=== PATIENT | female | born 2005 | race Caucasian/White ===

== ENCOUNTER 2024-03-10 03:06 | Emergency (ER) | payer MEDICAID ==
[2024-03-10 03:21] VITALS: RESP 16; TEMP 97.4
[2024-03-10 03:28] LABS: HCG URINE TEST NEGATIVE (NEGATIVE)
[2024-03-10 03:32] LABS: Appearance Clear (Clear); Bacteria None Seen /HPF (None Seen); Bilirubin Negative (Negative); Blood Negative (Negative); Epithelial Cells Rare /HPF (None Seen); Glucose, Urine Negative (Negative); Hyaline Casts NONE SEEN /LPF (0-2); Ketones Negative (Negative); Leukocyte Esterase Negative (Negative); Nitrite Negative (Negative); Ph 5.5 (4.6-8.0); Protein,Urine Dip Trace (Negative); RBC 0-2 /HPF (0-5); Specific Gravity >=1.030 (1.005-1.030); Urobilinogen 0.2 mg/dL (0.2); WBC 0-2 /HPF (0-5)
[2024-03-10] MEDS ORDERED: Zofran 4 MG/2 ML VIAL ONE (03:50)
[2024-03-10] MEDS ORDERED: MORPHINE SULFATE 2 MG INJ ONE (03:51)
[2024-03-10] MEDS ORDERED: Sodium Chloride 0.9% 1000 ML 1,000 ML ONE (03:51)
[2024-03-10] MEDS: Sodium Chloride 0.9% 1000 ML 1,000 ML IV SCH (03:55)
[2024-03-10 04:00] LABS: Absolute Neutrophil Ct (ANC) 11.78 x10^3/uL (1.56-6.13); BASOPHIL % 0.3 % (0.1-1.2); Basophil (Absolute #) 0.04 x10^3/uL (0.01-0.08); Eosinophil % 0.9 % (0.7-5.8); Eosinophil (Absolute #) 0.12 x10^3/uL (0.04-0.36); Hematocrit 42.2 % (34.1-44.9); Hemoglobin 14.1 g/dL (11.2-15.7); IMMATURE GRAN # 0.07 x10^3u/L (0.001-0.031); IMMATURE GRAN % 0.5 % (0.001-0.429); Lymphocyte (Absolute #) 0.82 x10^3/uL (1.18-3.74); Mean Cell Volume 85.9 fL (79.4-94.8); Mean Corpuscular Hemoglobin 28.7 pg (25.6-32.2); Mean Corpuscular Hgb Concent. 33.4 g/dL (32.2-35.5); Mean Platelet Volume 12.9 fL (9.4-12.3); Monocyte (Absolute #) 0.78 x10^3/uL (0.24-0.86); Monocytes % 5.7 % (4.7-12.5); Neutrophil % 86.6 % (34.0-71.1); Platelet Count 170 x10^3/uL (182-369); Red Blood Count 4.91 x10^6/uL (3.93-5.22); Red Cell Distribution Width 12.6 % (11.7-14.4); White Blood Count 13.6 x10^3/uL (3.98-10.04)
[2024-03-10] MEDS: Zofran 4 MG/2 ML VIAL IV ONE (04:00)
[2024-03-10] MEDS: MORPHINE SULFATE 2 MG INJ IV ONE (04:00)
[2024-03-10 04:03] LABS: ALBUMIN 4.6 g/dL (3.5-5.0); ANION GAP 13.3 MEQ/L (5-15); BILIRUBIN,TOTAL 0.8 mg/dL (0.2-1.3); Calcium 8.9 mg/dL (8.4-10.2); Creatinine 1 0.6 mg/dL (0.52-1.04); EST GLOMERULAR FILTRATION RATE 132.5 ML/MIN; Potassium 3.8 mmol/L (3.5-5.1); Total Protein 7.7 g/dL (6.3-8.2)
[2024-03-10 05:04] VITALS: BP 101/62; PULSE 97; O2SAT 100
--- NOTE | 2024-03-10 05:11 | XRAY ---
CLINICAL HISTORY: pain COMPARISON: None. TECHNIQUE: Contiguous axial images were obtained from the level of the diaphragm to the pubic symphysis without intravenous or oral contrast. Coronal and sagittal reconstructions were likewise performed and indicated to increase the sensitivity for detecting clinically relevant pathology. CT scan was performed according to ALARA (as low as reasonably achievable). FINDINGS: The visualized lung bases are clear. Evaluation of the abdominal and pelvic visceral organs is limited without intravenous contrast. The unenhanced liver is grossly unremarkable. The gallbladder is present. The unenhanced spleen is grossly unremarkable. The unenhanced pancreas is grossly unremarkable. The adrenal glands are grossly unremarkable. The kidneys are normal in size. There is no hydronephrosis. No perinephric stranding is seen. The ureters are normal in caliber. No evidence of focal or diffuse bowel wall thickening or evidence of bowel obstruction is seen. The appendix appears normal. Fecal loading of the large bowel is noted. The urinary bladder is normal in contour. No adenopathy or fluid collections are seen. Pelvic viscera are grossly unremarkable. The aorta is normal in caliber. No aggressive appearing osseous lesions are identified. IMPRESSION: 1. No acute abnormality detected. 2. Fecal loading of the large bowel is noted. Electronically Signed by: Larry Szymanski MD. (03/10/2024 05:08:03 EST)
--- NOTE | 2024-03-10 05:38 | ERPHSYRPT ---
- History of Present Illness Time Seen by Provider: 03/10/24 03:30 Historian: patient Exam Limitations: no limitations Patient Subjective Stated Complaint: abd pain and vomiting Triage Nursing Assessment: Pt ambulated into ER without diff, sig other at bedside. Pt c/o vomiting since 9pm. Pt denies any diarrhea. Abd soft with active bs x4 quad, tender to mid abd and LLQ. Physician History: 18-year-old female presents to emergency department for evaluation of nausea vomiting epigastric pain and left lower quadrant pain that started at approximately 9 PM. No radiation of pain. No associated diarrhea no trauma no fever. No chest pain or shortness of breath. Vomit is nonbloody nonbilious. No urinary symptomology. No dysuria no frequency no urgency. Symptoms are constant. Symptoms are moderate in intensity. No specific worsening or improving factors. Patient reports she has no significant past medical history otherwise. Patient otherwise feels well. Significant other at bedside. They voiced no other complaints or concerns at this time. Portions of this note were created with voice recognition technology. There may be grammatical, spelling, punctuation or sound alike errors Timing/Duration: today Activities at Onset: none Quality: aching Abdominal Pain Onset Location: epigastric, other (Left lower quadrant) Pain Radiation: no radiation Severity of Pain-Max: moderate Severity of Pain-Current: mild Modifying Factors: Improves With: nothing Associated Symptoms: denies symptoms Previous symptoms: no prior history Allergies/Adverse Reactions: No Known Drug Allergies Allergy (Unverified 03/10/24 03:29) Hx Tetanus, Diphtheria Vaccination/Date Given: Yes Hx Influenza Vaccination/Date Given: No Hx Pneumococcal Vaccination/Date Given: No Travel Risk - International Travel Have you traveled outside of the country in past 3 weeks: No - Emerging Infectious Disease Are you exhibiting symptoms associated with any current EIDs: Yes Symptoms: Abdominal Pain, Vomitting - Review of Systems Constitutional: No Symptoms, No Fever, No Chills Eyes: No Symptoms Ears, Nose, & Throat: No Symptoms Respiratory: No Symptoms, No Cough, No Dyspnea Cardiac: No Symptoms, No Chest Pain, No Edema, No Syncope Abdominal/Gastrointestinal: No Symptoms, No Abdominal Pain, No Nausea, No Vomiting, No Diarrhea Genitourinary Symptoms: No Symptoms, No Dysuria Musculoskeletal: No Symptoms, No Back Pain, No Neck Pain Skin: No Symptoms, No Rash Neurological: No Symptoms, No Dizziness, No Focal Weakness, No Sensory Changes Psychological: No Symptoms Endocrine: No Symptoms Hematologic/Lymphatic: No Symptoms Immunological/Allergic: No Symptoms All Other Systems: Reviewed and Negative - Past Medical History Pertinent Past Medical History: No - Past Surgical History Past Surgical History: No - Female History Hx Last Menstrual Period: 02/16/24 Hx Now: No - Social History Smoking Status: Current every day smoker Exposure to second hand smoke: Yes Drug Use: none - Social Determinants of Health Will the patient participate in the screening: Yes Do you worry about a steady place to live?: No Do you have any problems with any of the following?: No known problems In the past 12 months,have you had to go without utilities?: No Transportation Issues: No Has anyone in your support network made you feel unsafe?: No Have you or anyone in your house had to go without enough: No - Nursing Vital Signs Nursing Vital Signs: Initial Vital Signs Temperature 97.4 F 03/10/24 03:19 Pulse Rate 130 H 03/10/24 03:19 Respiratory Rate 16 03/10/24 03:19 Blood Pressure 134/87 03/10/24 03:19 O2 Sat by Pulse Oximetry 99 03/10/24 03:19 Pain Scale Pain Intensity 0 - Physical Exam General Appearance: no apparent distress, alert Eye Exam: PERRL/EOMI, eyes nml inspection Ears, Nose, Throat Exam: normal ENT inspection, pharynx normal, moist mucous membranes Neck Exam: normal inspection, non-tender, supple, full range of motion Respiratory Exam: normal breath sounds, lungs clear, airway intact, No respiratory distress Cardiovascular Exam: regular rate/rhythm, normal heart sounds, normal peripheral pulses Gastrointestinal/Abdomen Exam: soft, tenderness (Mild epigastric tenderness and left lower quadrant tenderness. No peritoneal signs. No rebound. No masses. Overlying soft tissue intact. No signs of trauma), No mass Back Exam: normal inspection, normal range of motion, No CVA tenderness, No vertebral tenderness Extremity Exam: normal inspection, normal range of motion, pelvis stable Neurologic Exam: alert, oriented x 3, cooperative, normal mood/affect, sensation nml, No motor deficits Skin Exam: normal color, warm, dry Lymphatic Exam: No adenopathy SpO2 Interpretation: normal SpO2: 100 O2 Delivery: Room Air - Course Nursing assessment & vital signs reviewed: Yes - CT Exams Abdomen/Pelvis CT Interpretation: Tele-radiologist Report (Fecal loading of large bowel otherwise no acute findings) Ordered Tests: Active Orders 24 hr Category Date Time Status IV Insertion STAT Care 03/10/24 03:33 Active ABDOMEN AND PELVIS W/0 CONTRAS [CT] Stat Exams 03/10/24 04:08 Completed CBC W DIFF Stat Lab 03/10/24 03:49 Completed CMP Stat Lab 03/10/24 03:49 Completed HCG QUALITATIVE, URINE Stat Lab 03/10/24 03:19 Completed LIPASE Stat Lab 03/10/24 03:49 Completed UA W/RFX UR CULTURE Stat Lab 03/10/24 03:19 Completed Medication Summary Generic Name Dose Route Start Last Admin Trade Name Freq PRN Reason Stop Dose Admin Sodium Chloride 1,000 mls @ 100 mls/hr 03/10/24 03:45 03/10/24 04:01 Sodium Chloride 0.9% 1000 Ml IV 04/09/24 03:44 999 mls/hr .Q10H WADE Infusion Discontinued Medications Generic Name Dose Route Start Last Admin Trade Name Freq PRN Reason Stop Dose Admin Morphine Sulfate 2 mg 03/10/24 03:33 03/10/24 04:00 Morphine Sulfate 2 Mg/Ml Inj IV 03/10/24 03:34 2 mg STAT ONE Administration Morphine Sulfate Confirm 03/10/24 03:51 Morphine Sulfate 2 Mg/Ml Inj Administered 03/10/24 03:52 Dose 2 mg .ROUTE .STK-MED ONE Ondansetron HCl 4 mg 03/10/24 03:33 03/10/24 04:00 Ondansetron Hcl 4 Mg/2 Ml Vial IV 03/10/24 03:34 4 mg STAT ONE Administration Ondansetron HCl Confirm 03/10/24 03:50 Ondansetron Hcl 4 Mg/2 Ml Vial Administered 03/10/24 03:51 Dose 4 mg .ROUTE .STK-MED ONE Lab/Rad Data: Laboratory Result Diagrams 03/10/24 03:49 03/10/24 03:49 Laboratory Results 03/10/24 03/10/24 03/10/24 Range/Units 03:49 03:49 03:19 WBC 13.6 H (3.98-10.04) x10^3/uL RBC 4.91 (3.93-5.22) x10^6/uL Hgb 14.1 (11.2-15.7) g/dL Hct 42.2 (34.1-44.9) % MCV 85.9 (79.4-94.8) fL MCH 28.7 (25.6-32.2) pg MCHC 33.4 (32.2-35.5) g/dL RDW 12.6 (11.7-14.4) % Plt Count 170 L (182-369) x10^3/uL MPV 12.9 H (9.4-12.3) fL Gran % 86.6 H (34.0-71.1) % Immature Gran % (Auto) 0.5 H (0.001-0.429) % Nucleat RBC Rel Count 0.0 (0.00-0.2) % Eos # (Auto) 0.12 (0.04-0.36) x10^3/uL Immature Gran # (Auto) 0.07 H (0.001-0.031) x10^3u/L Absolute Lymphs (auto) 0.82 L (1.18-3.74) x10^3/uL Absolute Monos (auto) 0.78 (0.24-0.86) x10^3/uL Absolute Nucleated RBC 0.00 (0.00-0.012) x10^3u/L Lymphocytes % 6.0 L (19.3-51.7) % Monocytes % 5.7 (4.7-12.5) % Eosinophils % 0.9 (0.7-5.8) % Basophils % 0.3 (0.1-1.2) % Absolute Granulocytes 11.78 H (1.56-6.13) x10^3/uL Basophils # 0.04 (0.01-0.08) x10^3/uL Sodium 135 (135-145) mmol/L Potassium 3.8 (3.5-5.1) mmol/L Chloride 104 (98-107) mmol/L Carbon Dioxide 22 (22-30) mmol/L Anion Gap 13.3 (5-15) MEQ/L BUN 15 (7-17) mg/dL Creatinine 0.60 (0.52-1.04) mg/dL Estimated GFR 132.5 ML/MIN Glucose 117 H (74-106) mg/dL Calcium 8.9 (8.4-10.2) mg/dL Total Bilirubin 0.80 (0.2-1.3) mg/dL AST 27 (14-36) U/L ALT 19 (0-35) U/L Alkaline Phosphatase 91 (38-126) U/L Serum Total Protein 7.7 (6.3-8.2) g/dL Albumin 4.6 (3.5-5.0) g/dL Lipase 62 (23-300) U/L Urine Color (Yellow) Urine Appearance (Clear) Urine pH (4.6-8.0) Ur Specific [place] (1.005-1.030) Urine Protein (Negative) Urine Glucose (UA) (Negative) mg/dL Urine Ketones (Negative) Urine Blood (Negative) Urine Nitrite (Negative) Urine Bilirubin (Negative) Urine Urobilinogen (0.2) mg/dL Ur Leukocyte Esterase (Negative) U Hyaline Cast (Auto) (0-2) /LPF Urine Microscopic RBC (0-5) /HPF Urine Microscopic WBC (0-5) /HPF Ur Epithelial Cells (None Seen) /HPF Urine Bacteria (None Seen) /HPF Urine Culture Reflexed (NO) Urine HCG, Qual NEGATIVE (NEGATIVE) 03/10/24 Range/Units 03:19 WBC (3.98-10.04) x10^3/uL RBC (3.93-5.22) x10^6/uL Hgb (11.2-15.7) g/dL Hct (34.1-44.9) % MCV (79.4-94.8) fL MCH (25.6-32.2) pg MCHC (32.2-35.5) g/dL RDW (11.7-14.4) % Plt Count (182-369) x10^3/uL MPV (9.4-12.3) fL Gran % (34.0-71.1) % Immature Gran % (Auto) (0.001-0.429) % Nucleat RBC Rel Count (0.00-0.2) % Eos # (Auto) (0.04-0.36) x10^3/uL Immature Gran # (Auto) (0.001-0.031) x10^3u/L Absolute Lymphs (auto) (1.18-3.74) x10^3/uL Absolute Monos (auto) (0.24-0.86) x10^3/uL Absolute Nucleated RBC (0.00-0.012) x10^3u/L Lymphocytes % (19.3-51.7) % Monocytes % (4.7-12.5) % Eosinophils % (0.7-5.8) % Basophils % (0.1-1.2) % Absolute Granulocytes (1.56-6.13) x10^3/uL Basophils # (0.01-0.08) x10^3/uL Sodium (135-145) mmol/L Potassium (3.5-5.1) mmol/L Chloride (98-107) mmol/L Carbon Dioxide (22-30) mmol/L Anion Gap (5-15) MEQ/L BUN (7-17) mg/dL Creatinine (0.52-1.04) mg/dL Estimated GFR ML/MIN Glucose (74-106) mg/dL Calcium (8.4-10.2) mg/dL Total Bilirubin (0.2-1.3) mg/dL AST (14-36) U/L ALT (0-35) U/L Alkaline Phosphatase (38-126) U/L Serum Total Protein (6.3-8.2) g/dL Albumin (3.5-5.0) g/dL Lipase (23-300) U/L Urine Color Yellow (Yellow) Urine Appearance Clear (Clear) Urine pH 5.5 (4.6-8.0) Ur Specific [place] >=1.030 A (1.005-1.030) Urine Protein Trace A (Negative) Urine Glucose (UA) Negative (Negative) mg/dL Urine Ketones Negative (Negative) Urine Blood Negative (Negative) Urine Nitrite Negative (Negative) Urine Bilirubin Negative (Negative) Urine Urobilinogen 0.2 (0.2) mg/dL Ur Leukocyte Esterase Negative (Negative) U Hyaline Cast (Auto) NONE SEEN (0-2) /LPF Urine Microscopic RBC 0-2 (0-5) /HPF Urine Microscopic WBC 0-2 (0-5) /HPF Ur Epithelial Cells Rare (None Seen) /HPF Urine Bacteria None Seen (None Seen) /HPF Urine Culture Reflexed NO (NO) Urine HCG, Qual (NEGATIVE) - Progress Progress: improved Progress Note: 18-year-old female presents to emergency department for evaluation of nausea vomiting epigastric and left lower quadrant pain that started approximately 9 PM. No trauma no fever. No chest pain or shortness of breath. Pain is constant. Physical exam reveals some tenderness to the epigastrium and left lower quadrant. Remainder of the exam is benign. Patient received IV fluids Zofran morphine for pain control. CT abdomen pelvis negative for acute intra- abdominal pathology. Increased fecal burden observed. UA negative for UTI. Urine negative. Laboratory workup reveals a leukocytosis of 15. No signs of infection no fever no inflammatory or infectious bowel. BUN/creatinine ratio is greater than 20. Urine specific gravity elevated as well. Findings suggestive of dehydration. Patient reassessed. Patient observed sleeping. She is resting comfortably. No active pain. No nausea no vomiting. Patient advised increasing her water intake and [id number] laxative. Patient understands the instructions and agrees to follow-up with her primary care doc tor within 48 hours for reevaluation. Significant other at bedside. They voiced no other complaints or concerns at this time. Portions of this note were created with voice recognition technology. There may be grammatical, spelling, punctuation or sound alike errors Complexity of problem addressed is moderate acute complicated no critical care time. Complex of data reviewed and analyzed is moderate. Test ordered chest reviewed results analyzed and correlated clinically with history and physical exam. Risk of complication and or risk of morbidity/mortality of patient management is moderate. A prescription for Zofran forwarded to patient's pharmacy. Vital stable. Time spent to discharge patient is approximately 15 minutes. Plan of care established for shared decision making. No social determinants of health present to impede follow-up. Portions of this note were created with voice recognition technology. There may be grammatical, spelling, punctuation or sound alike errors 03/10/24 05:49 03/10/24 05:53 Counseled pt/family regarding: lab results, diagnosis, need for follow-up, rad results - Departure Departure Disposition: Home Clinical Impression: Constipation, Abdominal pain, Dehydration Condition: Stable Critical Care Time: No Referrals: DOCTOR,NO FAMILY [Primary Care Provider] - Follow up/PCP as directed ASHLEY TERRELL MD [ACTIVE STAFF] - Follow up/PCP as directed Additional Instructions: Discharge/Care Plan LEONEL LOPEZ was seen on 03/10/24 in the Emergency Room. The patient was counseled regarding Diagnosis,Lab results, Imaging studies, need for follow up and when to return to the Emergency Room. Prescriptions given: Discharge Note I have spoken with the patient and/or caregivers. I have explained the patient's condition, diagnosis and treatment plan based on the information available to me at this time. I have answered the patient's and/or caregiver's questions and addressed any concerns. The patient and/or caregivers have as good understanding of the patient's diagnosis, condition and treatment plan as can be expected at this point. The vital signs have been stable. The patient's condition is stable and appropriate for discharge from the emergency department. The patient will pursue further outpatient evaluation with the primary care physician or other designated or consulting physician as outlined in the disch arge instructions. The patient and/or caregivers are agreeable to this plan of care and follow-up instructions have been explained in detail. The patient and/or caregivers have received these instruction. The patient/and or caregivers are aware that any significant change in condition or worsening of symptoms should prompt an immediate return to this or the closest emergency department or call 911. Prescriptions: Ondansetron ODT 4 MG [Zofran Odt 4 mg] 4 mg PO Q6H PRN PRN #10 tablet PRN Reason: Vomiting
== END 2024-03-10 05:45 | disposition home or self-care (01) ==
LOC: ED 03:06
DX: R11.2 Nausea with vomiting, unspecified (principal); R10.32 Left lower quadrant pain; K59.00 Constipation, unspecified; E86.0 Dehydration
CPT/HCPCS: 36415; 74176; 80053; 81001; 81025; 83690; 85025; 96374; 96375; 99284; J2270; J2405